=== PATIENT | female | born 1975 | race Caucasian/White ===

== ENCOUNTER 2020-04-01 14:14 | Emergency (ER) | payer MEDICAID ==
[2020-04-01] MEDS ORDERED: Sodium Chloride 0.9% 10 ML Syringe FLUSH PRN (14:37)
--- NOTE | 2020-04-01 14:55 | EDM.PDOC ---
ED HPI GENERAL MEDICAL PROBLEM - General Chief Complaint: Respiratory Problem Stated Complaint: SOB/FEVER/COVID WAS NEGATIVE/DAUGHTER WAS POSITIVE Time Seen by Provider: 04/01/20 14:26 Source of Information: Reports: Patient, RN Notes Reviewed History Limitations: Reports: No Limitations - History of Present Illness INITIAL COMMENTS - FREE TEXT/NARRATIVE: Patient is a 44-year-old female who presents to the ED for her shortness of breath, fever, and COVID-19 symptoms. The patient was staying with her daughter in [facility], and was tested for COVID-19 last week Sunday. She received negative results on Sunday. She states however her daughter who received the same testing on the same day she did was positive. She began to be symptomatic last week , which would be March 25. She states she had a cough, she is lost her sense of taste and smell. She has been quarantining at her boyfriend's house in [facility], but states she began to feel worse so she came to the ER for management. She is complaining of a productive cough, she notes that there are "chunks of stuff" coming out of her lungs, audible different colors, yellow-green, brown. She does have a history of cardiomyopathy recently diagnosed in December 2019, she does wear a LifeVest for this, as her ejection fraction is around 10 to 20%. She states she has had fevers, chills, cough, shortness of breath, loss of her taste of sense of smell at home. The patient is obese, and has underlying cardiovascular disease and would be a candidate for monoclonal antibody therapy. Generalized Pain Score (Numeric/FACES): 8 - Related Data Allergies Allergy/AdvReac Type Severity Reaction Status Date / Time No Known Allergies Allergy Verified 04/01/20 14:28 Home Meds: Home Meds Aspirin [Jerardo Chewable Aspirin] 81 mg PO DAILY 04/01/20 [History] Desvenlafaxine [Desvenlafaxine ER] 50 mg PO DAILY 04/01/20 [History] Furosemide 40 mg PO DAILY 04/01/20 [History] Levothyroxine 175 mcg PO DAILY 04/01/20 [History] Meloxicam 15 mg PO DAILY 04/01/20 [History] Metalazone. 04/01/20 [History] Pantoprazole Sodium [Protonix] 40 mg PO DAILY 04/01/20 [History] Potassium Chloride 80 meq PO BID 04/01/20 [History] Sacubitril/Valsartan [Entresto 24 mg-26 mg Tablet] 2 tab PO BID 04/01/20 [History] carvediloL [Carvedilol] 6.25 mg PO BID 04/01/20 [History] hydrOXYzine HCL [hydrOXYzine] 25 mg PO DAILY 04/01/20 [History] oxyCODONE 5 mg PO PRN 04/01/20 [History] Past Medical History Cardiovascular History: Reports: Cardiomyopathy (diagnosed in Dec 2019), Heart Failure, Other (See Below) Other Cardiovascular History: wears life vest last EF noted 10-20% Respiratory History: Reports: Asthma Gastrointestinal History: Reports: 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: Musculoskeletal History: Reports: Back Pain, Chronic, Other (See Below) Other Musculoskeletal History: degenerative disc disease Neurological History: Reports: Headaches, Chronic Psychiatric History: Reports: Anxiety, Depression Endocrine/Metabolic History: Reports: Hypothyroidism - Infectious Disease History Infectious Disease History: Reports: Chicken Pox, Herpes - Past Surgical History Female Surgical History: Reports: Hysterectomy Social & Family History - Family History Family Medical History: No Pertinent Family History - Tobacco Use Tobacco Use Status *Q: Never Tobacco User - Recreational Drug Use Recreational Drug Use: No ED ROS GENERAL - Review of Systems Review Of Systems: Comprehensive ROS is negative, except as noted in HPI. ED EXAM, GENERAL - Physical Exam Exam: See Below Exam Limited By: No Limitations General Appearance: Alert, WD/WN, No Apparent Distress, Anxious (generalized) Respiratory/Chest: No Respiratory Distress, Lungs Clear, Normal Breath Sounds, No Accessory Muscle Use, Chest Non-Tender Cardiovascular: Normal Peripheral Pulses, Regular Rate, Rhythm, No Murmur Peripheral Pulses: 2+: Radial (L), Radial (R) Extremities: Normal Inspection, Normal Capillary Refill Neurological: Alert, Oriented, Normal Cognition, No Motor/Sensory Deficits Psychiatric: Normal Affect, Normal Mood Skin Exam: Warm, Dry, Intact, Normal Color, No Rash #1 Interpretation EKG Date: 04/01/20 Time: 14:51 Rhythm: NSR (sinus tach) Rate (Beats/Min): 102 Latty: Normal P-Wave: Present QRS: Normal ST-T: Normal QT: Prolonged (QTC at 524) Comparison: NA - No Prior EKG EKG Interpretation Comments: No obvious ischemia or acute ST changes noted, reviewed by myself and Dr. Santos. Course - Vital Signs Last Recorded V/S: Last Vital Signs Temp 99.3 F 04/01/20 17:45 Pulse 98 04/01/20 18:45 Resp 16 04/01/20 18:45 BP 118/55 L 04/01/20 18:45 Pulse Ox 90 L 04/01/20 18:45 - Orders/Labs/Meds Orders: Active Orders 24 hr Category Date Time Status EKG Documentation Completion [RC] STAT Care 04/01/20 14:36 Active Peripheral IV Care [RC] . DIRECTED Care 04/01/20 14:37 Active Vital Signs [RC] Q15M Care 04/01/20 16:38 Active EPINEPHrine [EPINEPHrine 1:10,000] Med 04/01/20 16:38 Active 0.3 mg IM ONETIME PRN Famotidine [Pepcid] Med 04/01/20 16:38 Active 20 mg IVPUSH ONETIME PRN Sodium Chloride 0.9% [Saline Flush] Med 04/01/20 14:37 Active 10 ml FLUSH ASDIRECTED PRN Sodium Chloride 0.9% [Saline Flush] Med 04/01/20 16:45 Active 30 ml FLUSH ASDIRECTED diphenhydrAMINE [Benadryl] Med 04/01/20 16:38 Active 50 mg IVPUSH ONETIME PRN methylPREDNISolone Sod Succ [Solu-MEDROL] Med 04/01/20 16:38 Active 125 mg IVPUSH ONETIME PRN Isolation [COMM] Routine Oth 04/01/20 14:36 Ordered Peripheral IV Insertion Adult [OM.PC] Routine Oth 04/01/20 14:37 Ordered Medication Orders Diphenhydramine HCl (Benadryl) 50 mg IVPUSH ONETIME PRN PRN Reason: hypersensitivity reaction Epinephrine HCl (Epinephrine 1:10,000) 0.3 mg IM ONETIME PRN PRN Reason: hypersensitivity reaction Famotidine (Pepcid) 20 mg IVPUSH ONETIME PRN PRN Reason: hypersensitivity reaction Methylprednisolone Sodium Succinate (Solu-Medrol) 125 mg IVPUSH ONETIME PRN PRN Reason: hypersensitivity reaction Sodium Chloride (Saline Flush) 10 ml FLUSH ASDIRECTED PRN PRN Reason: Keep Vein Open Last Admin: 04/01/20 16:19 Dose: 10 ml Documented by: LIT Sodium Chloride (Saline Flush) 30 ml FLUSH ASDIRECTED TRISTIAN Labs: Laboratory Tests 04/01/20 04/01/20 04/01/20 Range/Units 14:55 14:55 14:55 WBC 4.54 (3.98-10.04) K/mm3 RBC 5.47 H (3.98-5.22) M/mm3 Hgb 15.6 (11.2-15.7) gm/dl Hct 46.6 H (34.1-44.9) % MCV 85.2 (79.4-94.8) fl MCH 28.5 (25.6-32.2) pg MCHC 33.5 (32.2-35.5) g/dl RDW Std Deviation 49.8 H (36.4-46.3) fL Plt Count 138 L (182-369) K/mm3 MPV 11.8 (9.4-12.3) fl Neutrophils % (Manual) 53 (40-60) % Band Neutrophils % 0 (0-10) % Lymphocytes % (Manual) 47 H (20-40) % Atypical Lymphs % 0 % Monocytes % (Manual) 0 L (2-10) % Eosinophils % (Manual) 0 L (0.7-5.8) % Basophils % (Manual) 0 L (0.1-1.2) Platelet Estimate Adequate RBC Morph Comment Normal PT (9.7-12.0) SECONDS INR APTT (21.7-31.4) SECONDS D-Dimer, Quantitative (0.19-0.50) mg/L Sodium (136-145) mEq/L Potassium (3.5-5.1) mEq/L Chloride (98-107) mEq/L Carbon Dioxide (21-32) mEq/L Anion Gap (5-15) BUN (7-18) mg/dL Creatinine (0.55-1.02) mg/dL Est Cr Clr Drug Dosing mL/min Estimated GFR (MDRD) (>60) mL/min BUN/Creatinine Ratio (14-18) Glucose (74-106) mg/dL Lactic Acid (0.4-2.0) mmol/L Calcium (8.5-10.1) mg/dL Magnesium (1.8-2.4) mg/dl Ferritin (8-252) ng/ml Total Bilirubin (0.2-1.0) mg/dL AST (15-37) U/L ALT (14-59) U/L Alkaline Phosphatase (46-116) U/L Lactate Dehydrogenase (81-234) U/L Troponin I (0.00-0.056) ng/mL C-Reactive Protein 2.5 H* (<1.0) mg/dL NT-Pro-B Natriuret Pep (0-125) pg/mL Total Protein (6.4-8.2) g/dl Albumin (3.4-5.0) g/dl Globulin gm/dL Albumin/Globulin Ratio (1-2) Influenza Type A RNA Negative (NEGATIVE) Influenza Type B RNA Negative (NEGATIVE) SARS-CoV-2 RNA (CLAUDIA) Positive H (NEGATIVE) 04/01/20 04/01/20 04/01/20 Range/Units 14:55 14:55 14:55 WBC (3.98-10.04) K/mm3 RBC (3.98-5.22) M/mm3 Hgb (11.2-15.7) gm/dl Hct (34.1-44.9) % MCV (79.4-94.8) fl MCH (25.6-32.2) pg MCHC (32.2-35.5) g/dl RDW Std Deviation (36.4-46.3) fL Plt Count (182-369) K/mm3 MPV (9.4-12.3) fl Neutrophils % (Manual) (40-60) % Band Neutrophils % (0-10) % Lymphocytes % (Manual) (20-40) % Atypical Lymphs % % Monocytes % (Manual) (2-10) % Eosinophils % (Manual) (0.7-5.8) % Basophils % (Manual) (0.1-1.2) Platelet Estimate RBC Morph Comment PT 10.8 (9.7-12.0) SECONDS INR 1.01 APTT 29.5 (21.7-31.4) SECONDS D-Dimer, Quantitative 0.20 (0.19-0.50) mg/L Sodium 134 L (136-145) mEq/L Potassium 3.0 L (3.5-5.1) mEq/L Chloride 96 L (98-107) mEq/L Carbon Dioxide 27 (21-32) mEq/L Anion Gap 14.0 (5-15) BUN 13 (7-18) mg/dL Creatinine 0.8 (0.55-1.02) mg/dL Est Cr Clr Drug Dosing 70.98 mL/min Estimated GFR (MDRD) > 60 (>60) mL/min BUN/Creatinine Ratio 16.3 (14-18) Glucose 103 (74-106) mg/dL Lactic Acid (0.4-2.0) mmol/L Calcium 8.7 (8.5-10.1) mg/dL Magnesium 1.7 L (1.8-2.4) mg/dl Ferritin (8-252) ng/ml Total Bilirubin 0.4 (0.2-1.0) mg/dL AST 27 (15-37) U/L ALT 25 (14-59) U/L Alkaline Phosphatase 74 (46-116) U/L Lactate Dehydrogenase 201 (81-234) U/L Troponin I < 0.017 (0.00-0.056) ng/mL C-Reactive Protein (<1.0) mg/dL NT-Pro-B Natriuret Pep 1654 H (0-125) pg/mL Total Protein 7.0 (6.4-8.2) g/dl Albumin 3.3 L (3.4-5.0) g/dl Globulin 3.7 gm/dL Albumin/Globulin Ratio 0.9 L (1-2) Influenza Type A RNA (NEGATIVE) Influenza Type B RNA (NEGATIVE) SARS-CoV-2 RNA (CLAUDIA) (NEGATIVE) 04/01/20 04/01/20 04/01/20 Range/Units 14:55 14:55 18:35 WBC (3.98-10.04) K/mm3 RBC (3.98-5.22) M/mm3 Hgb (11.2-15.7) gm/dl Hct (34.1-44.9) % MCV (79.4-94.8) fl MCH (25.6-32.2) pg MCHC (32.2-35.5) g/dl RDW Std Deviation (36.4-46.3) fL Plt Count (182-369) K/mm3 MPV (9.4-12.3) fl Neutrophils % (Manual) (40-60) % Band Neutrophils % (0-10) % Lymphocytes % (Manual) (20-40) % Atypical Lymphs % % Monocytes % (Manual) (2-10) % Eosinophils % (Manual) (0.7-5.8) % Basophils % (Manual) (0.1-1.2) Platelet Estimate RBC Morph Comment PT (9.7-12.0) SECONDS INR APTT (21.7-31.4) SECONDS D-Dimer, Quantitative (0.19-0.50) mg/L Sodium (136-145) mEq/L Potassium (3.5-5.1) mEq/L Chloride (98-107) mEq/L Carbon Dioxide (21-32) mEq/L Anion Gap (5-15) BUN (7-18) mg/dL Creatinine (0.55-1.02) mg/dL Est Cr Clr Drug Dosing mL/min Estimated GFR (MDRD) (>60) mL/min BUN/Creatinine Ratio (14-18) Glucose (74-106) mg/dL Lactic Acid 2.3 H* 1.7 (0.4-2.0) mmol/L Calcium (8.5-10.1) mg/dL Magnesium (1.8-2.4) mg/dl Ferritin 241 (8-252) ng/ml Total Bilirubin (0.2-1.0) mg/dL AST (15-37) U/L ALT (14-59) U/L Alkaline Phosphatase (46-116) U/L Lactate Dehydrogenase (81-234) U/L Troponin I (0.00-0.056) ng/mL C-Reactive Protein (<1.0) mg/dL NT-Pro-B Natriuret Pep (0-125) pg/mL Total Protein (6.4-8.2) g/dl Albumin (3.4-5.0) g/dl Globulin gm/dL Albumin/Globulin Ratio (1-2) Influenza Type A RNA (NEGATIVE) Influenza Type B RNA (NEGATIVE) SARS-CoV-2 RNA (CLAUDIA) (NEGATIVE) Meds: Medications Generic Name Dose Route Start Last Admin Trade Name Freq PRN Reason Stop Dose Admin Diphenhydramine HCl 50 mg 04/01/20 16:38 Benadryl IVPUSH ONETIME PRN hypersensitivity reaction Epinephrine HCl 0.3 mg 04/01/20 16:38 Epinephrine 1:10,000 IM ONETIME PRN hypersensitivity reaction Famotidine 20 mg 04/01/20 16:38 Pepcid IVPUSH ONETIME PRN hypersensitivity reaction Methylprednisolone Sodium Succinate 125 mg 04/01/20 16:38 Solu-Medrol IVPUSH ONETIME PRN hypersensitivity reaction Sodium Chloride 10 ml 04/01/20 14:37 04/01/20 16:19 Saline Flush FLUSH 10 ml ASDIRECTED PRN Administration Keep Vein Open Sodium Chloride 30 ml 04/01/20 16:45 Saline Flush FLUSH ASDIRECTED TRISTIAN Discontinued Medications Generic Name Dose Route Start Last Admin Trade Name Freq PRN Reason Stop Dose Admin Sodium Chloride 1,000 mls @ 500 mls/hr 04/01/20 16:38 04/01/20 16:58 Normal Saline IV 04/01/20 18:37 500 mls/hr ONETIME ONE Administration Bamlanivimab 700 mg/ Sodium 270 mls @ 270 mls/hr 04/01/20 17:00 04/01/20 17:10 Chloride IV 04/01/20 17:59 270 mls/hr ONETIME ONE Administration Protocol Potassium Chloride 40 meq 04/01/20 15:48 04/01/20 16:26 Klor-Con M20 PO 04/01/20 15:49 40 meq ONETIME ONE Administration - Re-Assessments/Exams Free Text/Narrative Re-Assessment/Exam: 04/01/20 14:58 Patient presents to the ED for the evaluation of her ongoing [id number] symptoms. I do believe the patient probably suffering from this as her daughter was positive and she did spend time with her, but got a negative test. We will get some labs to further evaluate her and figure out appropriate course of action when we know more. 04/01/20 15:55 Patient labs have started to result, the CBC is unremarkable, D-dimer is 0.20, potassium mildly low at 3.0, magnesium also mildly low at 1.7. D-dimer within normal limits at 0.20, LDH normal at 201, troponin is undetectably low. Chest x-ray has been performed, but has not been read officially. There are no signs of bilateral infiltrates by my eye, patient's heart is enlarged. We have had some issues getting an IV on the patient, she is deathly afraid of needles. The RN taking care of her did try twice, with her lactic acid being mildly elevated at 2.3. We will once again try to get IV access and give her IV fluids if possible. Dr. Santos thought maybe the lactic acid could be due to the patient's cardiac dysfunction as well, which is plausible. 04/01/20 16:39 I was able to talk with the patient's ripsaw matcher, Dr. Hector Wolf, and he does not have a preference on either of the monoclonal antibody therapy is for the patient. He does think that she could tolerate a fluid challenge due to the increased lactic acid, and diuresis as needed. He does recommend outpatient cardiology follow-up after she is recovered from COVID-19 to reassess her cardiac function. We will make this aware to the patient and have her do as such. I have ordered bamlanivimab for IV therapy and fluids at 500 mL/hr at this time. I spoke with the patient to provide information about bamlanivimab treatment. I offered her the "Patient and caregiver EUA bamlanivimab fact sheet" to read and review. I stated that the drug has been approved by an emergency was authorization (EUA) process and has not been fully FDA reviewed or approved. The patient meets the EUA requirements. I discussed there are other potential treatment options that are currently not FDA approved to treat COVID- 19. I did offer an opportunity to ask questions and all questions were answered. The patient voiced understanding and agreed to proceed with the treatment. 04/01/20 18:46 Patient has tolerated the bamlanivimab treatment well, she is set to be discharged home at 710 if she remains asymptomatic. The reflex lactic acid has been drawn, and will take another 7 minutes to result. Departure - Departure Time of Disposition: 19:05 Disposition: Home, Self-Care 01 Condition: Good Clinical Impression: COVID-19 - Discharge Information *PRESCRIPTION DRUG MONITORING PROGRAM REVIEWED*: No *COPY OF PRESCRIPTION DRUG MONITORING REPORT IN PATIENT SAE: No Instructions: COVID-19 Frequently Asked Questions, COVID-19: How to Protect Yourself and Others - [facility] Referrals: PCP,Not In Area [Primary Care Provider] - Forms: ED Department Discharge Additional Instructions: You were seen in the ER today for ongoing and/or worsening respiratory symptoms. Your chest x-ray showed no signs of pneumonia at this time. Your oxygen levels were great at 96-97% on room air. You were tested and diagnosed with COVID-19 at today's ER visit. You received the IV monoclonal antibody bamlanivimab for treatment of your COVID-19 disease. Please try to increase your oral fluid intake, and eat multiple small meals throughout the day, to keep yourself healthy. You need to keep yourself nourished in order to fight off this disease. You can try a liquid diet like gatorade/powerade as well to get your electrolytes. You may take 500 mg Tylenol every hours 6 hours for pain/fever relief. Do not exceed 4000 mg Tylenol in a 24-hour time span. However, running a fever is your body's natural response to illness, and it allows the body to develop antibodies to disease, we are recommending trying to limit the use of Tylenol as much as possible to allow your body's natural immune response. Recommend you obtain a pulse oximeter and monitor your oxygen levels at home, you should place the monitor on your finger, and sit in a calm, quiet position for a few minutes and then record the number that is on the screen. If this consistently below 90% on room air without movement, this would be cause for concern to come back to the hospital for further management of your COVID-19 disease. Your ripsaw matcher would like you to get a follow-up appointment with him after you are recovered from COVID-19, so he can reassess your cardiac function. Sepsis Event Note (ED) - Evaluation Sepsis Screening Result: Possible Sepsis Risk - Focused Exam Vital Signs: Vital Signs Temp Pulse Resp BP Pulse Ox 04/01/20 18:45 98 16 118/55 L 90 L 04/01/20 18:00 100 110/70 98 04/01/20 17:45 99.3 F 100 18 102/61 95 04/01/20 17:38 99/52 L 04/01/20 17:15 106/75 04/01/20 17:02 96 18 116/64 95 04/01/20 14:24 96.6 F L 111 H 31 H 117/77 99 - My Orders Last 24 Hours: My Active Orders 04/01/20 14:36 EKG Documentation Completion [RC] STAT Isolation [COMM] Routine 04/01/20 14:37 Peripheral IV Care [RC] . DIRECTED Sodium Chloride 0.9% [Saline Flush] 10 ml FLUSH ASDIRECTED PRN Peripheral IV Insertion Adult [OM.PC] Routine 04/01/20 16:38 Vital Signs [RC] Q15M EPINEPHrine [EPINEPHrine 1:10,000] 0.3 mg IM ONETIME PRN Famotidine [Pepcid] 20 mg IVPUSH ONETIME PRN diphenhydrAMINE [Benadryl] 50 mg IVPUSH ONETIME PRN methylPREDNISolone Sod Succ [Solu-MEDROL] 125 mg IVPUSH ONETIME PRN 04/01/20 16:45 Sodium Chloride 0.9% [Saline Flush] 30 ml FLUSH ASDIRECTED - Assessment/Plan Last 24 Hours: My Active Orders 04/01/20 14:36 EKG Documentation Completion [RC] STAT Isolation [COMM] Routine 04/01/20 14:37 Peripheral IV Care [RC] . DIRECTED Sodium Chloride 0.9% [Saline Flush] 10 ml FLUSH ASDIRECTED PRN Peripheral IV Insertion Adult [OM.PC] Routine 04/01/20 16:38 Vital Signs [RC] Q15M EPINEPHrine [EPINEPHrine 1:10,000] 0.3 mg IM ONETIME PRN Famotidine [Pepcid] 20 mg IVPUSH ONETIME PRN diphenhydrAMINE [Benadryl] 50 mg IVPUSH ONETIME PRN methylPREDNISolone Sod Succ [Solu-MEDROL] 125 mg IVPUSH ONETIME PRN 04/01/20 16:45 Sodium Chloride 0.9% [Saline Flush] 30 ml FLUSH ASDIRECTED
[2020-04-01] MEDS ORDERED: Potassium Chloride 20 MEQ Tab.ER PO ONE (15:48)
[2020-04-01 16:01] LABS: CORONAVIRUS COVID-19 NAA POSITIVE (NEGATIVE)
--- NOTE | 2020-04-01 16:02 | CR ---
Chest: Portable view of the chest was obtained. Comparison: No prior study is available. Findings: Heart size and mediastinum: Heart and mediastinum are within normal limits for portable technique. Lungs: Clear with no acute parenchymal change. Osseous: No discrete osseous findings are seen. Impression: 1. Nothing acute is appreciated on portable chest x-ray. Diagnostic code #1 This report was dictated in MDT
[2020-04-01] MEDS ORDERED: methylPREDNISolone Sodium Succinate 125 MG/2 ML SDV IVPUSH PRN (16:38)
[2020-04-01] MEDS ORDERED: Sodium Chloride 0.9% 1,000 ML IV ONE (16:38)
[2020-04-01] MEDS ORDERED: EPINEPHrine 1:10,000 1 MG/10 ML Syringe IM PRN (16:38)
[2020-04-01] MEDS ORDERED: Famotidine 20 MG/2 ML SDV IVPUSH PRN (16:38)
[2020-04-01] MEDS ORDERED: diphenhydrAMINE 50 MG/ML SDV IVPUSH PRN (16:38)
[2020-04-01] MEDS ORDERED: Sodium Chloride 0.9% 10 ML Syringe FLUSH SCH (16:45)
== END 2020-04-01 19:28 | disposition home or self-care (01) ==
LOC: JD.ED 14:14
DX: U07.1 COVID-19 (principal); R00.0 Tachycardia, unspecified; I50.9 Heart failure, unspecified; J45.909 Unspecified asthma, uncomplicated; K21.9 Gastro-esophageal reflux disease without esophagitis; F41.9 Anxiety disorder, unspecified; F32.9 Major depressive disorder, single episode, unspecified; E03.9 Hypothyroidism, unspecified; Z79.82 Long term (current) use of aspirin; Z79.899 Other long term (current) drug therapy
CPT/HCPCS: 0240U; 36415; 71045; 71045-26; 80053; 82728; 83605; 83615; 83735; 83880; 84484; 85007; 85027; 85379; 85610; 85730; 86140; 93005; 93010; 96365; 99284; 99285-25; A9270-GY; J7030; J7050

== ENCOUNTER 2020-10-12 13:44 | Emergency (ER) | payer MEDICAID ==
[2020-10-12] MEDS ORDERED: Sodium Chloride 0.9% 10 ML Syringe FLUSH PRN (14:39)
--- NOTE | 2020-10-12 15:49 | EDM.PDOC ---
ED HPI GENERAL MEDICAL PROBLEM - General Chief Complaint: Cardiovascular Problem Stated Complaint: CHEST PAIN Time Seen by Provider: 10/12/20 14:01 Source of Information: Reports: Patient, RN Notes Reviewed - History of Present Illness INITIAL COMMENTS - FREE TEXT/NARRATIVE: 45 yr old female comes in with leg cramps that have become more severe over the last few days. She has hx of "cardiomyopathy" States her ejection fx was already low at around 20 last summer when she started having sx of dyspnea, last reading was about 10 after having and surviving covid last March about 5 months ago. She did gain about 20 lbs of fluid a few weeks ago and has slowly been working that off with multiple diuretics as documented per med list. She does have continued dyspnea with exertion. States she is still about 7 lbs over baseline but is down 13 lbs from max weight 10 to 14 days ago. 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(s) Chest Pain Score (Numeric/FACES): 6 - Related Data Allergies Allergy/AdvReac Type Severity Reaction Status Date / Time No Known Allergies Allergy Verified 10/12/20 14:00 Home Meds: Home Meds Aspirin [Jerardo Chewable Aspirin] 81 mg PO DAILY 04/01/20 [History] Furosemide 40 mg PO DAILY 04/01/20 [History] Levothyroxine 175 mcg PO DAILY 04/01/20 [History] Meloxicam 15 mg PO DAILY 04/01/20 [History] Pantoprazole Sodium [Protonix] 40 mg PO DAILY 04/01/20 [History] Potassium Chloride 80 meq PO BID 04/01/20 [History] Sacubitril/Valsartan [Entresto 24 mg-26 mg Tablet] 2 tab PO BID 04/01/20 [History] oxyCODONE 5 mg PO ASDIRECTED PRN 04/01/20 [History] Acetaminophen/Butalbital/Caff [Fioricet 325-50-40 MG] 1 each PO 10/12/20 [History] Albuterol [Proventil Neb Soln] 0.63 mg NEB Q2H 10/12/20 [History] Cyclobenzaprine [Flexeril] 1 tab PO TID 10/12/20 [History] Fluconazole 150 mg PO ASDIRECTED 10/12/20 [History] Fluticasone Propionate [Flonase] 16 gm NS ASDIRECTED 10/12/20 [History] Fluticasone/Salmeterol [Advair 100-50] 1 puff INH BID 10/12/20 [History] Gabapentin [Neurontin] 300 mg PO BID 10/12/20 [History] LORazepam [Ativan] 0.5 mg PO BEDTIME PRN #7 tablet 10/12/20 [Rx] Magnesium Oxide [Magnesium] 800 mg PO ASDIRECTED 10/12/20 [History] Metoprolol Succinate [Toprol Xl] 100 mg PO BID 10/12/20 [History] Spironolactone [Aldactone] 100 mg PO DAILY 10/12/20 [History] ondansetron HCL [Zofran] 1 tab SL ASDIRECTED 10/12/20 [History] oxyCODONE HCl/Acetaminophen [Percocet 10-325 mg Tablet] 1 each PO ASDIRECTED 10/12/20 [History] Past Medical History HEENT History: Reports: Impaired Vision Cardiovascular History: Reports: Cardiomyopathy, Heart Failure, Other (See Be low) Other Cardiovascular History: wears life vest last EF noted 10-20% Respiratory History: Reports: Asthma Gastrointestinal History: Reports: GERD Genitourinary History: Reports: None 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: Musculoskeletal History: Reports: Back Pain, Chronic, Other (See Below) Other Musculoskeletal History: degenerative disc disease Neurological History: Reports: Headaches, Chronic Psychiatric History: Reports: Anxiety, Depression Endocrine/Metabolic History: Reports: Hypothyroidism Hematologic History: Reports: None Immunologic History: Reports: None Oncologic (Cancer) History: Reports: None Dermatologic History: Reports: None - Infectious Disease History Infectious Disease History: Reports: Chicken Pox, Herpes, Novel Coronavirus - Past Surgical History Head Surgeries/Procedures: Reports: None HEENT Surgical History: Reports: Adenoidectomy, Oral Surgery, Tonsillectomy Female Surgical History: Reports: Hysterectomy Social & Family History - Family History Family Medical History: No Pertinent Family History HEENT: Reports: None Cardiac: Reports: None Respiratory: Reports: None GI: Reports: None : Reports: None OBGYN: Reports: None Musculoskeletal: Reports: None Neurological: Reports: None Psychiatric: Reports: None Endocrine/Metabolic: Reports: None - Tobacco Use Tobacco Use Status *Q: Former Tobacco User Used Tobacco, but Quit: Yes Month/Year Tobacco Last Used: 03/2015 - Caffeine Use Caffeine Use: Reports: Energy Drinks - Recreational Drug Use Recreational Drug Use: Yes Drug Use in Last 12 Months: No Recreational Drug Type: Reports: Marijuana/Hashish Recreational Drug Use Frequency: Not Used In Over 1 Year ED ROS GENERAL - Review of Systems Review Of Systems: See Below Constitutional: Denies: Fever, Chills HEENT: Reports: No Symptoms Respiratory: Reports: Shortness of Breath. Denies: Cough Cardiovascular: Denies: Chest Pain Endocrine: Reports: Fatigue GI/Abdominal: Denies: Abdominal Pain, Nausea, Vomiting Musculoskeletal: Reports: Other (leg cramps) Skin: Reports: No Symptoms Neurological: Reports: No Symptoms ED EXAM, GENERAL - Physical Exam Exam: See Below General Appearance: Alert, No Apparent Distress Throat/Mouth: Normal Inspection Head: Atraumatic Neck: Supple Respiratory/Chest: No Respiratory Distress, Lungs Clear, Normal Breath Sounds. No: Rales, Rhonchi, Wheezing Cardiovascular: Tachycardia Back Exam: No: CVA Tenderness (L), CVA Tenderness (R) Extremities: No: Increased Warmth Neurological: Alert, Oriented, No Motor/Sensory Deficits Skin Exam: Warm, Dry, Normal Color #1 Interpretation EKG Date: 10/12/20 Rhythm: NSR [place]: Normal P-Wave: Present QRS: Other (q waves inf leads) ST-T: Normal Course - Vital Signs Last Recorded V/S: Last Vital Signs Temp 97.1 F 10/12/20 14:14 Pulse 107 H 10/12/20 14:14 Resp 26 H 10/12/20 14:14 BP 124/82 10/12/20 14:14 Pulse Ox 98 10/12/20 14:14 - Orders/Labs/Meds Orders: Active Orders 24 hr Category Date Time Status EKG 12 Lead [EKG Documentation Completion] [RC] STAT Care 10/12/20 14:00 Active Peripheral IV Care [RC] . DIRECTED Care 10/12/20 14:39 Active Chest 1V Frontal [CR] Stat Exams 10/12/20 14:41 Taken Sodium Chloride 0.9% [Saline Flush] Med 10/12/20 14:39 Active 10 ml FLUSH ASDIRECTED PRN Peripheral IV Insertion Adult [OM.PC] Stat Oth 10/12/20 14:39 Ordered Medication Orders Sodium Chloride (Sodium Chloride 0.9% 10 Ml Syringe) 10 ml FLUSH ASDIRECTED PRN PRN Reason: Keep Vein Open Last Admin: 10/12/20 14:07 Dose: 10 ml Documented by: VAUGHN Labs: Laboratory Tests 10/12/20 10/12/20 Range/Units 14:07 14:07 WBC 11.07 H (3.98-10.04) K/mm3 RBC 5.71 H (3.98-5.22) M/mm3 Hgb 17.1 H D (11.2-15.7) gm/dl Hct 49.8 H (34.1-44.9) % MCV 87.2 (79.4-94.8) fl MCH 29.9 (25.6-32.2) pg MCHC 34.3 (32.2-35.5) g/dl RDW Std Deviation 43.2 (36.4-46.3) fL Plt Count 270 D (182-369) K/mm3 MPV 11.8 (9.4-12.3) fl Neut % (Auto) 48.7 (34.0-71.1) % Lymph % (Auto) 39.3 (19.3-51.7) % [place] % (Auto) 8.5 (4.7-12.5) % Eos % (Auto) 2.6 (0.7-5.8) Baso % (Auto) 0.5 (0.1-1.2) % Neut # (Auto) 5.40 (1.56-6.13) K/mm3 Lymph # (Auto) 4.35 H (1.18-3.74) K/mm3 [place] # (Auto) 0.94 H (0.24-0.36) K/mm3 Eos # (Auto) 0.29 (0.04-0.36) K/mm3 Baso # (Auto) 0.05 (0.01-0.08) K/mm3 Manual Slide Review Normal smear Sodium 136 (136-145) mEq/L Potassium 4.4 (3.5-5.1) mEq/L Chloride 97 L (98-107) mEq/L Carbon Dioxide 25 (21-32) mEq/L Anion Gap 18.4 H (5-15) BUN 23 H (7-18) mg/dL Creatinine 1.1 H (0.55-1.02) mg/dL Est Cr Clr Drug Dosing 51.08 mL/min Estimated GFR (MDRD) 54 (>60) mL/min BUN/Creatinine Ratio 20.9 H (14-18) Glucose 135 H (70-99) mg/dL Calcium 10.1 (8.5-10.1) mg/dL Magnesium 2.4 (1.8-2.4) mg/dL Total Bilirubin 0.3 (0.2-1.0) mg/dL AST 17 (15-37) U/L ALT 25 (14-59) U/L Alkaline Phosphatase 86 (46-116) U/L Total Protein 8.3 H (6.4-8.2) g/dl Albumin 4.4 (3.4-5.0) g/dl Globulin 3.9 gm/dL Albumin/Globulin Ratio 1.1 (1-2) Meds: Medications Generic Name Dose Route Start Last Admin Trade Name Freq PRN Reason Stop Dose Admin Sodium Chloride 10 ml 10/12/20 14:39 10/12/20 14:07 Sodium Chloride 0.9% 10 Ml Syringe FLUSH 10 ml ASDIRECTED PRN Administration Keep Vein Open - Re-Assessments/Exams Free Text/Narrative Re-Assessment/Exam: 10/12/20 15:50 K 4.4, mag 2.4, calcium 10.1. Other labs as noted. CXR looks good, EKG does not show acute changes. Departure - Departure Time of Disposition: 16:13 Disposition: Home, Self-Care 01 Condition: Fair Clinical Impression: Bilateral leg cramps CHF (congestive heart failure) Qualifiers: Heart failure type: unspecified Heart failure chronicity: chronic Qualified Code(s): I50.9 - Heart failure, unspecified Prescriptions: LORazepam [Ativan] 0.5 mg PO BEDTIME PRN #7 tablet PRN Reason: Other Instructions: Heart Failure, Self Care Referrals: PCP,Not In Area [Primary Care Provider] - Forms: ED Department Discharge Additional Instructions: Continue current meds. Ativan 0.5 mg at night to help you sleep. Follow up with your regular medical provider as needed. Sepsis Event Note (ED) - Evaluation Sepsis Screening Result: No Definite Risk - Focused Exam Vital Signs: Vital Signs Temp Pulse Resp BP Pulse Ox 10/12/20 14:14 97.1 F 107 H 26 H 124/82 98 - My Orders Last 24 Hours: My Active Orders 10/12/20 14:00 EKG 12 Lead [EKG Documentation Completion] [RC] STAT 10/12/20 14:39 Peripheral IV Care [RC] . DIRECTED Sodium Chloride 0.9% [Saline Flush] 10 ml FLUSH ASDIRECTED PRN Peripheral IV Insertion Adult [OM.PC] Stat 10/12/20 14:41 Chest 1V Frontal [CR] Stat - Assessment/Plan Last 24 Hours: My Active Orders 10/12/20 14:00 EKG 12 Lead [EKG Documentation Completion] [RC] STAT 10/12/20 14:39 Peripheral IV Care [RC] . DIRECTED Sodium Chloride 0.9% [Saline Flush] 10 ml FLUSH ASDIRECTED PRN Peripheral IV Insertion Adult [OM.PC] Stat 10/12/20 14:41 Chest 1V Frontal [CR] Stat
--- NOTE | 2020-10-13 09:55 | CR ---
Chest: Portable view of the chest was obtained. Comparison: Prior chest x-ray of 04/01/20. Heart is felt to be somewhat enlarged. Upper mediastinum is normal. Lungs are clear with no acute parenchymal change. Scattered endplate spurring is partially seen within the spine. Impression: 1. Heart is felt to be slightly enlarged. 2. Nothing acute is otherwise seen on portable chest x-ray. Diagnostic code #3
== END 2020-10-12 16:37 | disposition home or self-care (01) ==
LOC: JD.ED 13:44
DX: I50.9 Heart failure, unspecified (principal); J45.909 Unspecified asthma, uncomplicated; K21.9 Gastro-esophageal reflux disease without esophagitis; E03.9 Hypothyroidism, unspecified; Z79.82 Long term (current) use of aspirin; Z79.899 Other long term (current) drug therapy; Z87.891 Personal history of nicotine dependence
CPT/HCPCS: 36415; 71045; 71045-26; 80053; 83735; 85025; 93005; 93010; 99284; 99285-25

== ENCOUNTER 2020-10-19 17:02 | Emergency (ER) | payer MEDICAID ==
[2020-10-19] MEDS ORDERED: Sodium Chloride 0.9% 10 ML Syringe FLUSH PRN (17:22)
[2020-10-19] MEDS ORDERED: Aspirin 81 MG Tab.Chew PO ONE (17:22)
--- NOTE | 2020-10-19 17:51 | EDM.PDOC ---
ED HPI GENERAL MEDICAL PROBLEM - General Chief Complaint: Chest Pain Stated Complaint: CHEST PAIN Time Seen by Provider: 10/19/20 17:22 Source of Information: Reports: Patient, RN Notes Reviewed History Limitations: Reports: No Limitations - History of Present Illness INITIAL COMMENTS - FREE TEXT/NARRATIVE: Patient is a 45-year-old female who presents to the ER for the evaluation of her chest pain. Patient does have a history of heart failure and cardiac issues, due to having COVID-19. States that her ejection fraction is roughly 10%, and she is to have an appointment with her surgical team, on October 28 to see what is going to be done for her, either going to have an LVAD, or she is can be put on the transplant list. Patient is not having any new shortness of breath, nausea or vomiting, states that she has developed charley horses or muscle cramping, so much that her hands ball up in her wrists also get quite tense. States that this is quite painful. She had some of the spasms in her legs yesterday, and had a small fall after this. She is not complaining of any pain after the fall. States that her chest pain is a 6 out of 10, and seems to be in her left chest, and sometimes radiates to her left shoulder with some tingles/numbness. States that the pain is sharp, can be intermittent, but sometimes episode last 2 to 3 hours. Patient does take quite a bit of medications, and states that the pain was so bad last night, that she did not get much sleep. Chest Pain Score (Numeric/FACES): 6 - Related Data Allergies Allergy/AdvReac Type Severity Reaction Status Date / Time No Known Allergies Allergy Verified 10/19/20 17:19 Home Meds: Home Meds Aspirin [Jerardo Chewable Aspirin] 81 mg PO DAILY 04/01/20 [History] Furosemide 40 mg PO BID 04/01/20 [History] Levothyroxine 150 mcg PO DAILY 04/01/20 [History] Meloxicam 15 mg PO DAILY 04/01/20 [History] Pantoprazole Sodium [Protonix] 40 mg PO DAILY 04/01/20 [History] Potassium Chloride 60 meq PO TID 04/01/20 [History] Sacubitril/Valsartan [Entresto 24 mg-26 mg Tablet] 2 tab PO BID 04/01/20 [History] Acetaminophen/Butalbital/Caff [Fioricet 325-50-40 MG] 1 each PO Q6H PRN 10/12/20 [History] Albuterol [Proventil Neb Soln] 0.63 mg NEB Q2H 10/12/20 [History] Cyclobenzaprine [Flexeril] 10 mg PO TID PRN 10/12/20 [History] Fluticasone Propionate [Flonase] 16 gm NS ASDIRECTED 10/12/20 [History] Fluticasone/Salmeterol [Advair 100-50] 1 puff INH BID 10/12/20 [History] Gabapentin [Neurontin] 300 mg PO TID 10/12/20 [History] Magnesium Oxide [Magnesium] 800 mg PO DAILY 10/12/20 [History] Metoprolol Succinate [Toprol Xl] 100 mg PO DAILY 10/12/20 [History] Spironolactone [Aldactone] 100 mg PO DAILY 10/12/20 [History] ondansetron HCL [Zofran] 4 mg SL ASDIRECTED PRN 10/12/20 [History] oxyCODONE HCl/Acetaminophen [Percocet 10-325 mg Tablet] 10 mg PO TID PRN 10/12/20 [History] Desvenlafaxine Succinate [Desvenlafaxine Succinate ER] 100 mg PO DAILY 10/19/20 [History] Orphenadrine [Norflex] 100 mg PO BID PRN #20 tab 10/19/20 [Rx] QUEtiapine [SEROquel] 25 mg PO BEDTIME PRN 10/19/20 [History] clonazePAM [Klonopin] 0.125 mg PO BID 10/19/20 [History] metOLazone [Metolazone] 2.5 mg PO ASDIRECTED 10/19/20 [History] Past Medical History HEENT History: Reports: Impaired Vision Cardiovascular History: Reports: Cardiomyopathy, Heart Failure, Other (See Below) Other Cardiovascular History: wears life vest last EF noted 10-20% Respiratory History: Reports: Asthma Gastrointestinal History: Reports: GERD Genitourinary History: Reports: 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: Musculoskeletal History: Reports: Back Pain, Chronic, Other (See Below) Other Musculoskeletal History: degenerative disc disease Neurological History: Reports: Headaches, Chronic Psychiatric History: Reports: Anxiety, Depression Endocrine/Metabolic History: Reports: Hypothyroidism Hematologic History: Reports: None Immunologic History: Reports: None Oncologic (Cancer) History: Reports: None Dermatologic History: Reports: None - Infectious Disease History Infectious Disease History: Reports: Chicken Pox, Herpes, Novel Coronavirus - Past Surgical History Head Surgeries/Procedures: Reports: None HEENT Surgical History: Reports: Adenoidectomy, Oral Surgery, Tonsillectomy Female Surgical History: Reports: Hysterectomy Social & Family History - Family History Family Medical History: No Pertinent Family History HEENT: Reports: None Cardiac: Reports: None Respiratory: Reports: None GI: Reports: None : Reports: None OBGYN: Reports: None Musculoskeletal: Reports: None Neurological: Reports: None Psychiatric: Reports: None Endocrine/Metabolic: Reports: None - Caffeine Use Caffeine Use: Reports: Energy Drinks ED ROS GENERAL - Review of Systems Review Of Systems: Comprehensive ROS is negative, except as noted in HPI. ED EXAM, GENERAL - Physical Exam Exam: See Below Exam Limited By: No Limitations General Appearance: Alert, WD/WN, No Apparent Distress Throat/Mouth: Normal Inspection, Normal Lips, Normal Teeth, Normal Oropharynx, Normal Voice, No Airway Compromise Head: Atraumatic, Normocephalic Respiratory/Chest: No Respiratory Distress, Lungs Clear, Normal Breath Sounds, No Accessory Muscle Use, Chest Non-Tender Cardiovascular: Normal Peripheral Pulses, Regular Rate, Rhythm, No Edema Peripheral Pulses: 2+: Radial (L), Radial (R) Extremities: Normal Inspection, Normal Capillary Refill Neurological: Alert, Oriented, Normal Cognition, No Motor/Sensory Deficits Psychiatric: Normal Affect, Normal Mood Skin Exam: Warm, Dry, Intact, Normal Color, No Rash Course - Vital Signs Last Recorded V/S: Last Vital Signs Temp 97.8 F 10/19/20 17:16 Pulse 108 H 10/19/20 17:16 Resp 18 10/19/20 17:16 BP Pulse Ox - Orders/Labs/Meds Orders: Active Orders 24 hr Category Date Time Status EKG Documentation Completion [RC] STAT Care 10/19/20 17:22 Active Peripheral IV Care [RC] . DIRECTED Care 10/19/20 17:22 Active Chest 1V Frontal [CR] Stat Exams 10/19/20 17:22 Taken Sodium Chloride 0.9% [Saline Flush] Med 10/19/20 17:22 Active 10 ml FLUSH ASDIRECTED PRN Peripheral IV Insertion Adult [OM.PC] Stat Oth 10/19/20 17:22 Ordered Medication Orders Sodium Chloride (Sodium Chloride 0.9% 10 Ml Syringe) 10 ml FLUSH ASDIRECTED PRN PRN Reason: Keep Vein Open Last Admin: 10/19/20 17:29 Dose: 10 ml Documented by: NAGA Labs: Laboratory Tests 10/19/20 10/19/20 10/19/20 Range/Units 17:21 17:21 17:21 WBC 10.10 H (3.98-10.04) K/mm3 RBC 5.43 H (3.98-5.22) M/mm3 Hgb 16.3 H (11.2-15.7) gm/dl Hct 48.7 H (34.1-44.9) % MCV 89.7 (79.4-94.8) fl MCH 30.0 (25.6-32.2) pg MCHC 33.5 (32.2-35.5) g/dl RDW Std Deviation 45.9 (36.4-46.3) fL Plt Count 225 (182-369) K/mm3 MPV 11.4 (9.4-12.3) fl Neut % (Auto) 53.2 (34.0-71.1) % Lymph % (Auto) 33.4 (19.3-51.7) % [place] % (Auto) 8.6 (4.7-12.5) % Eos % (Auto) 4.2 (0.7-5.8) Baso % (Auto) 0.4 (0.1-1.2) % Neut # (Auto) 5.38 (1.56-6.13) K/mm3 Lymph # (Auto) 3.37 (1.18-3.74) K/mm3 [place] # (Auto) 0.87 H (0.24-0.36) K/mm3 Eos # (Auto) 0.42 H (0.04-0.36) K/mm3 Baso # (Auto) 0.04 (0.01-0.08) K/mm3 Manual Slide Review Normal smear PT (9.7-12.0) SECONDS INR APTT (21.7-31.4) SECONDS Sodium 137 (136-145) mEq/L Potassium 4.3 (3.5-5.1) mEq/L Chloride 100 (98-107) mEq/L Carbon Dioxide 25 (21-32) mEq/L Anion Gap 16.3 H (5-15) BUN 25 H (7-18) mg/dL Creatinine 1.0 (0.55-1.02) mg/dL Est Cr Clr Drug Dosing 66.51 mL/min Estimated GFR (MDRD) 60 (>60) mL/min BUN/Creatinine Ratio 25.0 H (14-18) Glucose 122 H (70-99) mg/dL Calcium 9.2 (8.5-10.1) mg/dL Magnesium 2.4 (1.8-2.4) mg/dL Total Bilirubin 0.6 (0.2-1.0) mg/dL AST 17 (15-37) U/L ALT 29 (14-59) U/L Alkaline Phosphatase 73 (46-116) U/L Troponin I < 0.017 (0.00-0.056) ng/mL NT-Pro-B Natriuret Pep 397 H (0-125) pg/mL Total Protein 7.6 (6.4-8.2) g/dl Albumin 4.1 (3.4-5.0) g/dl Globulin 3.5 gm/dL Albumin/Globulin Ratio 1.2 (1-2) // Range/Units 17:52 WBC (3.98-10.04) K/mm3 RBC (3.98-5.22) M/mm3 Hgb (11.2-15.7) gm/dl Hct (34.1-44.9) % MCV (79.4-94.8) fl MCH (25.6-32.2) pg MCHC (32.2-35.5) g/dl RDW Std Deviation (36.4-46.3) fL Plt Count (182-369) K/mm3 MPV (9.4-12.3) fl Neut % (Auto) (34.0-71.1) % Lymph % (Auto) (19.3-51.7) % [place] % (Auto) (4.7-12.5) % Eos % (Auto) (0.7-5.8) Baso % (Auto) (0.1-1.2) % Neut # (Auto) (1.56-6.13) K/mm3 Lymph # (Auto) (1.18-3.74) K/mm3 [place] # (Auto) (0.24-0.36) K/mm3 Eos # (Auto) (0.04-0.36) K/mm3 Baso # (Auto) (0.01-0.08) K/mm3 Manual Slide Review PT 10.8 (9.7-12.0) SECONDS INR 1.01 APTT 24.9 (21.7-31.4) SECONDS Sodium (136-145) mEq/L Potassium (3.5-5.1) mEq/L Chloride (98-107) mEq/L Carbon Dioxide (21-32) mEq/L Anion Gap (5-15) BUN (7-18) mg/dL Creatinine (0.55-1.02) mg/dL Est Cr Clr Drug Dosing mL/min Estimated GFR (MDRD) (>60) mL/min BUN/Creatinine Ratio (14-18) Glucose (70-99) mg/dL Calcium (8.5-10.1) mg/dL Magnesium (1.8-2.4) mg/dL Total Bilirubin (0.2-1.0) mg/dL AST (15-37) U/L ALT (14-59) U/L Alkaline Phosphatase (46-116) U/L Troponin I (0.00-0.056) ng/mL NT-Pro-B Natriuret Pep (0-125) pg/mL Total Protein (6.4-8.2) g/dl Albumin (3.4-5.0) g/dl Globulin gm/dL Albumin/Globulin Ratio (1-2) Meds: Medications Generic Name Dose Route Start Last Admin Trade Name Freq PRN Reason Stop Dose Admin Sodium Chloride 10 ml 10/19/20 17:22 10/19/20 17:29 Sodium Chloride 0.9% 10 Ml Syringe FLUSH 10 ml ASDIRECTED PRN Administration Keep Vein Open Discontinued Medications Generic Name Dose Route Start Last Admin Trade Name Freq PRN Reason Stop Dose Admin Aspirin 324 mg 10/19/20 17:22 10/19/20 17:29 Aspirin 81 Mg Tab.Chew PO 10/19/20 17:23 324 mg ONETIME ONE Administration Orphenadrine Citrate 100 mg 10/19/20 18:32 Orphenadrine 100 Mg Tab.Er PO 10/19/20 18:33 ONETIME ONE - Re-Assessments/Exams Free Text/Narrative Re-Assessment/Exam: 10/19/20 18:07 Patient presents to the ER for the evaluation of her chest pain. EKG did not show any sign of acute ST change or ischemic change reviewed by myself or Dr. Donnelly. We will get baseline labs, for further evaluation. Patient has been complaining of some increased muscle spasms, notes that she has been on Flexeril for some time, I do believe may be if we switch her muscle relaxer, this may help get her some relief from her symptoms. Patient seems open to this suggestion. I did also order some extra aspirin for her for today's purposes, she states she only took her 81 mg this morning. 10/19/20 18:33 Laboratory evaluation demonstrates no acute abnormalities, troponin is undetectably low. We will switch her from Flexeril to Norflex to see if this helps relieve some of her muscle spasm issues. She is willing to try this. She will follow up with her cardiac team for any ongoing management. Departure - Departure Time of Disposition: 18:33 Disposition: Home, Self-Care 01 Condition: Good Clinical Impression: Chest pain Qualifiers: Chest pain type: unspecified Qualified Code(s): R07.9 - Chest pain, unspecified Prescriptions: Orphenadrine [Norflex] 100 mg PO BID PRN #20 tab PRN Reason: Spasms Instructions: Nonspecific Chest Pain, Adult, [id number] Referrals: PCP,Not In Area [Primary Care Provider] - Forms: ED Department Discharge Additional Instructions: You were evaluated in the ER today for your chest pain. Your EKG, chest x-ray, and laboratory evaluation are all unremarkable. Chest pain is thought likely due to musculoskeletal etiology. You have been switched from Flexeril to Norflex for muscle spasm management. Please use 1 tablet Norflex 2 times a day for muscle spasms. Please follow-up with your regular providers for ongoing management of your health. Please return to the ER at any time if symptoms change or worsen. Sepsis Event Note (ED) - Evaluation Sepsis Screening Result: No Definite Risk - Focused Exam Vital Signs: Vital Signs Temp Pulse Resp 10/19/20 17:16 97.8 F 108 H 18 - My Orders Last 24 Hours: My Active Orders 10/19/20 17:22 EKG Documentation Completion [RC] STAT Peripheral IV Care [RC] . DIRECTED Chest 1V Frontal [CR] Stat Sodium Chloride 0.9% [Saline Flush] 10 ml FLUSH ASDIRECTED PRN Peripheral IV Insertion Adult [OM.PC] Stat - Assessment/Plan Last 24 Hours: My Active Orders 10/19/20 17:22 EKG Documentation Completion [RC] STAT Peripheral IV Care [RC] . DIRECTED Chest 1V Frontal [CR] Stat Sodium Chloride 0.9% [Saline Flush] 10 ml FLUSH ASDIRECTED PRN Peripheral IV Insertion Adult [OM.PC] Stat
[2020-10-19] MEDS ORDERED: Orphenadrine 100 MG Tab.ER PO ONE (18:32)
--- NOTE | 2020-10-20 07:24 | CR ---
Chest: Portable view of the chest was obtained. Comparison: Prior chest x-ray 10/12/20. Heart size and mediastinum are within normal limits for portable technique. Lungs are clear with no acute parenchymal change. Slight calcific tendinitis is noted within the left shoulder. Mild spurring is noted within the spine. Impression: 1. Osseous findings as noted above. 2. Nothing acute is otherwise seen on portable chest x-ray. Diagnostic code #2
== END 2020-10-19 19:00 | disposition home or self-care (01) ==
LOC: JD.ED 17:02
DX: R07.9 Chest pain, unspecified (principal); I50.9 Heart failure, unspecified; J45.909 Unspecified asthma, uncomplicated; K21.9 Gastro-esophageal reflux disease without esophagitis; E03.9 Hypothyroidism, unspecified; Z79.82 Long term (current) use of aspirin; Z79.899 Other long term (current) drug therapy
CPT/HCPCS: 36415; 71045; 80053; 83735; 83880; 84484; 85025; 85610; 85730; 93005; 99285; A9270; 99284

== ENCOUNTER 2020-12-11 15:12 | Emergency (ER) | payer MEDICAID ==
--- NOTE | 2020-12-11 16:22 | EDM.PDOC ---
ED HPI GENERAL MEDICAL PROBLEM - General Chief Complaint: Cardiovascular Problem Stated Complaint: CHEST PAIN/SOB Time Seen by Provider: 12/11/20 15:25 Source of Information: Reports: Patient History Limitations: Reports: No Limitations - History of Present Illness INITIAL COMMENTS - FREE TEXT/NARRATIVE: The patient presents with chest pain and shortness of breath. This has been going on for a few days. The patient has a history of CHF with systolic dysjunction with only 10% EF. She just had a internal cardiac defibrillator placed 11/25/20. She felt some little twinges behind the defibrillator. She does not think it went off. She said this was all caused by COVID 19 she had back in March. She is working with the [facility] heart transplant center to get on the list for a new heart and she will also be meeting with them in January to discuss getting an LVAD. She also says she has some congestion and some sinus pressure. She has some chills but no fever. She is worried she may have COVID again. Onset: Gradual Duration: Day(s): Location: Reports: Chest Quality: Reports: Other (twinge) Severity: Mild Improves with: Reports: None Worsens with: Reports: None Associated Symptoms: Reports: Chest Pain, Shortness of Breath. Denies: Cough, Fever/Chills, Headaches, Nausea/Vomiting Chest Pain Score (Numeric/FACES): 7 - Related Data Allergies Allergy/AdvReac Type Severity Reaction Status Date / Time No Known Allergies Allergy Verified 12/11/20 15:19 Home Meds: Home Meds Aspirin [Jerardo Chewable Aspirin] 81 mg PO DAILY 04/01/20 [History] Furosemide 40 mg PO BID 04/01/20 [History] Levothyroxine 150 mcg PO DAILY 04/01/20 [History] Meloxicam 15 mg PO DAILY 04/01/20 [History] Pantoprazole Sodium [Protonix] 40 mg PO DAILY 04/01/20 [History] Potassium Chloride 40 meq PO TID 04/01/20 [History] Sacubitril/Valsartan [Entresto 24 mg-26 mg Tablet] 2 tab PO BID 04/01/20 [History] Albuterol [Proventil Neb Soln] 0.63 mg NEB Q2H 10/12/20 [History] Fluticasone Propionate [Flonase] 16 gm NS ASDIRECTED 10/12/20 [History] Fluticasone/Salmeterol [Advair 100-50] 1 puff INH BID 10/12/20 [History] Gabapentin [Neurontin] 300 mg PO TID 10/12/20 [History] Magnesium Oxide [Magnesium] 800 mg PO DAILY 10/12/20 [History] Metoprolol Succinate [Toprol Xl] 100 mg PO DAILY 10/12/20 [History] Spironolactone [Aldactone] 100 mg PO DAILY 10/12/20 [History] ondansetron HCL [Zofran] 4 mg SL ASDIRECTED PRN 10/12/20 [History] Desvenlafaxine Succinate [Desvenlafaxine Succinate ER] 100 mg PO DAILY 10/19/20 [History] Orphenadrine [Norflex] 100 mg PO BID PRN #20 tab 10/19/20 [Rx] QUEtiapine [SEROquel] 25 mg PO BEDTIME PRN 10/19/20 [History] clonazePAM [Klonopin] 0.125 mg PO BID PRN 10/19/20 [History] Ascorbic Acid [Vitamin C] 1 tab PO DAILY 12/11/20 [History] Cyanocobalamin (Vitamin B-12) [Vitamin B-12] 250 mg PO DAILY 12/11/20 [History] Naloxone HCl [Narcan] 1 spray DAVID ASDIRECTED PRN 12/11/20 [History] Pyridoxine HCl (Vitamin B6) [Vitamin B-6] 100 mg PO DAILY 12/11/20 [History] oxyCODONE 10 mg PO TID 12/11/20 [History] valACYclovir [Valtrex] 1 tab PO BID PRN 12/11/20 [History] Past Medical History HEENT History: Reports: Impaired Vision Cardiovascular History: Reports: Cardiomyopathy, Heart Failure, Hypertension, Other (See Below) Other Cardiovascular History: wears life vest last EF noted 10% Respiratory History: Reports: Asthma Gastrointestinal History: Reports: GERD Genitourinary History: Reports: None 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: Musculoskeletal History: Reports: Back Pain, Chronic, Other (See Below) Other Musculoskeletal History: degenerative disc disease Neurological History: Reports: Headaches, Chronic Psychiatric History: Reports: Anxiety, Depression Endocrine/Metabolic History: Reports: Hypothyroidism, Obesity/BMI 30+ Hematologic History: Reports: None Immunologic History: Reports: None Oncologic (Cancer) History: Reports: None Dermatologic History: Reports: None - Infectious Disease History Infectious Disease History: Reports: Chicken Pox, Herpes, Novel Coronavirus - Past Surgical History Head Surgeries/Procedures: Reports: None HEENT Surgical History: Reports: Adenoidectomy, Oral Surgery, Tonsillectomy Female Surgical History: Reports: Hysterectomy Social & Family History - Family History Family Medical History: No Pertinent Family History HEENT: Reports: None Cardiac: Reports: None Respiratory: Reports: None GI: Reports: None : Reports: None OBGYN: Reports: None Musculoskeletal: Reports: None Neurological: Reports: None Psychiatric: Reports: None Endocrine/Metabolic: Reports: None - Tobacco Use Tobacco Use Status *Q: Never Tobacco User Second Hand Smoke Exposure: No - Caffeine Use Caffeine Use: Reports: None - Recreational Drug Use Recreational Drug Use: No ED ROS GENERAL - Review of Systems Review Of Systems: See Below Constitutional: Reports: No Symptoms HEENT: Reports: No Symptoms Respiratory: Reports: Shortness of Breath. Denies: Cough Cardiovascular: Reports: Chest Pain Endocrine: Reports: No Symptoms GI/Abdominal: Reports: No Symptoms : Reports: No Symptoms Musculoskeletal: Reports: No Symptoms ED EXAM, GENERAL - Physical Exam Exam: See Below Exam Limited By: No Limitations General Appearance: Alert, No Apparent Distress Ears: Normal External Exam Nose: Normal Inspection Head: Atraumatic, Normocephalic Neck: Normal Inspection Respiratory/Chest: No Respiratory Distress, Lungs Clear, Normal Breath Sounds Cardiovascular: Regular Rate, Rhythm, No Edema, No Murmur GI/Abdominal: Soft, Non-Tender, No Organomegaly, No Mass Back Exam: Normal Inspection Extremities: Normal Inspection #1 Interpretation EKG Date: 12/11/20 Time: 15:31 Rhythm: NSR Rate (Beats/Min): 89 [place]: LAD-Left [place] Deviation P-Wave: Present QRS: Normal ST-T: Other (inverted Q waves in lead III and aVF) QT: Normal Course - Vital Signs Last Recorded V/S: Last Vital Signs Temp 96.9 F 12/11/20 15:16 Pulse 100 12/11/20 15:16 Resp 25 H 12/11/20 15:16 BP 148/107 H 12/11/20 15:16 Pulse Ox 99 08/14/21 15:16 - Orders/Labs/Meds Orders: Active Orders 24 hr Category Date Time Status Cardiac Monitoring [RC] . DIRECTED Care 12/11/20 15:44 Active EKG Documentation Completion [RC] STAT Care 12/11/20 15:45 Active Chest 1V Frontal [CR] Stat Exams 12/11/20 15:45 Taken CORONAVIRUS COVID-19 CLAUDIA [MOLEC] Stat Lab 12/11/20 15:45 Stop Req Labs: Laboratory Tests 12/11/20 12/11/20 12/11/20 Range/Units 16:06 16:06 16:06 WBC 9.44 (3.98-10.04) K/mm3 RBC 5.31 H (3.98-5.22) M/mm3 Hgb 15.9 H (11.2-15.7) gm/dl Hct 47.2 H (34.1-44.9) % MCV 88.9 (79.4-94.8) fl MCH 29.9 (25.6-32.2) pg MCHC 33.7 (32.2-35.5) g/dl RDW Std Deviation 43.0 (36.4-46.3) fL Plt Count 233 (182-369) K/mm3 MPV 11.3 (9.4-12.3) fl Neut % (Auto) 60.2 (34.0-71.1) % Lymph % (Auto) 28.9 (19.3-51.7) % [place] % (Auto) 8.2 (4.7-12.5) % Eos % (Auto) 2.1 (0.7-5.8) Baso % (Auto) 0.4 (0.1-1.2) % Neut # (Auto) 5.68 (1.56-6.13) K/mm3 Lymph # (Auto) 2.73 (1.18-3.74) K/mm3 [place] # (Auto) 0.77 H (0.24-0.36) K/mm3 Eos # (Auto) 0.20 (0.04-0.36) K/mm3 Baso # (Auto) 0.04 (0.01-0.08) K/mm3 Sodium 140 (136-145) mEq/L Potassium 4.1 (3.5-5.1) mEq/L Chloride 105 (98-107) mEq/L Carbon Dioxide 24 (21-32) mEq/L Anion Gap 15.1 H (5-15) BUN 29 H (7-18) mg/dL Creatinine 1.1 H (0.55-1.02) mg/dL Est Cr Clr Drug Dosing 51.08 mL/min Estimated GFR (MDRD) 54 (>60) mL/min BUN/Creatinine Ratio 26.4 H (14-18) Glucose 124 H (70-99) mg/dL Calcium 9.2 (8.5-10.1) mg/dL Total Bilirubin 0.3 (0.2-1.0) mg/dL AST 13 L (15-37) U/L ALT 28 (14-59) U/L Alkaline Phosphatase 64 (46-116) U/L Troponin I < 0.017 (0.00-0.056) ng/mL NT-Pro-B Natriuret Pep 769 H (0-125) pg/mL Total Protein 7.4 (6.4-8.2) g/dl Albumin 3.9 (3.4-5.0) g/dl Globulin 3.5 gm/dL Albumin/Globulin Ratio 1.1 (1-2) - Re-Assessments/Exams Free Text/Narrative Re-Assessment/Exam: 12/11/20 16:24 I ordered an EKG, CXR and labs. Her EKG shows a NSR with no acute changes. 12/11/20 18:04 Her CXR looks good. Her CBC looks good. Her creatinine is elevated at 1.1. Her glucose is elevated at 124. Her troponin is negative. Her BNP is 769. Departure - Departure Time of Disposition: 18:05 Disposition: Home, Self-Care 01 Condition: Good Clinical Impression: Chest pain Qualifiers: Chest pain type: unspecified Qualified Code(s): R07.9 - Chest pain, unspecified Referrals: Janeth Cheney, INFORMATION SYSTEMS SECURITY MANAGER [Primary Care Provider] - Forms: ED Department Discharge Additional Instructions: Take your medications as prescribed. Please return if you are worse. Sepsis Event Note (ED) - Focused Exam Vital Signs: Vital Signs Temp Pulse Resp BP Pulse Ox 12/11/20 15:16 96.9 F 100 25 H 148/107 H 99 - My Orders Last 24 Hours: My Active Orders 12/11/20 15:44 Cardiac Monitoring [RC] . DIRECTED 12/11/20 15:45 EKG Documentation Completion [RC] STAT Chest 1V Frontal [CR] Stat CORONAVIRUS COVID-19 CLAUDIA [MOLEC] Stat - Assessment/Plan Last 24 Hours: My Active Orders 12/11/20 15:44 Cardiac Monitoring [RC] . DIRECTED 12/11/20 15:45 EKG Documentation Completion [RC] STAT Chest 1V Frontal [CR] Stat CORONAVIRUS COVID-19 CLAUDIA [MOLEC] Stat
--- NOTE | 2020-12-12 07:27 | CR ---
Chest: Portable view of the chest was obtained. Comparison: Prior chest x-ray of 10/19/20. Heart size and mediastinum are within normal limits. AICD is present. Lungs are clear with no acute parenchymal change. Calcifications are seen within the left shoulder compatible with previous calcific tendinitis which is a stable finding from prior chest x-ray. Impression: 1. AICD which is an interval change from prior chest x-ray. 2. Previous calcific tendinitis within the left shoulder which is stable. 3. Nothing acute is appreciated on portable chest x-ray. Diagnostic code #2
== END 2020-12-11 18:25 | disposition home or self-care (01) ==
LOC: JD.ED 15:12
DX: R07.9 Chest pain, unspecified (principal); I11.0 Hypertensive heart disease with heart failure; I50.20 Unspecified systolic (congestive) heart failure; J45.909 Unspecified asthma, uncomplicated; K21.9 Gastro-esophageal reflux disease without esophagitis; E03.9 Hypothyroidism, unspecified; E66.9 Obesity, unspecified; Z79.899 Other long term (current) drug therapy; Z20.822 Contact with and (suspected) exposure to COVID-19; Z95.810 Presence of automatic (implantable) cardiac defibrillator; Z79.82 Long term (current) use of aspirin; Z68.42 Body mass index [BMI] 45.0-49.9, adult
CPT/HCPCS: 36415; 71045; 71045-26; 80053; 83880; 84484; 85025; 93005; 93010; 99284; 99285-25